=== PATIENT | male | born 1975 | race Caucasian/White ===

== ENCOUNTER 2025-06-06 12:14 | Emergency (ER) | payer MEDICAID ==
[~2025-06-06] VITALS: Ht 180.3 cm; Wt 117.9 kg
[2025-06-06 13:08] LABS: APPEARANCE,URINE CLEAR (CLEAR); BLOOD, URINE NEGATIVE Ery/uL (NEGATIVE); LEUKOCYTE ESTERASE ,URINE NEGATIVE (NEGATIVE); NITRITE, URINE NEGATIVE (NEGATIVE); UGLUCOSE NEGATIVE (NEGATIVE)
[2025-06-06 15:19] VITALS: BP 124/76; TEMP 98.5; O2SAT 99
== END 2025-06-06 15:20 | disposition home or self-care (01) ==
LOC: ER 12:45
DX: N50.812 Left testicular pain (principal); Z04.3 Encounter for examination and observation following other accident
CPT/HCPCS: 76870-TC; 87086-TC